=== PATIENT | male | born 1970 | race Caucasian/White ===

== ENCOUNTER 2019-01-12 18:14 | Inpatient (IN) | payer OTHER ==
[~2019-01-12] VITALS: Ht 177.8 cm; Wt 100.9 kg
--- NOTE | ~2019-01-12 | H ---
[facility] [place] [address] HISTORY AND PHYSICAL Name: MAHIKRISHNA Megha Room #: 245-P ADM IN M.R.#: [id number] Admission: 01/12/19 ������������������ Attend Phys: Troy Thurman MD Discharge: ������������������ Date of : 70 Report #: [id number] THIS REPORT FOR: //name// CC: FAM physician/PCP Troy Thurman DATE OF SERVICE: 01/12/2019 ATTENDING PHYSICIAN: Dr. Thurman. PRIMARY CARE PHYSICIAN: [facility]. CHIEF COMPLAINT: Need for emergent dialysis. HISTORY OF PRESENT ILLNESS: The patient is a 48-year-old male who was sent as a direct admission from [facility] due to acute renal failure and hyperkalemia. Apparently, they did not have an ICU bed. He denies any history of kidney problems and has never had to see a multimedia producer in the past. Apparently, he presented to [facility] due to difficulty urinating for a few weeks. He told them he was not feeling like he was able to empty his bladder. Upon further questioning, he states that he was seen at [place] 2 months ago and had a kidney infection and ended up having a catheter placed due to urinary retention. He said he was seen by Nephrology there, and they advised that he keep the Galicia in place at discharge. He was started on Flomax and followed up with Urology 1 month ago and states that catheter was removed at that time, and his Flomax dose was increased. He has had problems urinating since then. He denies seeing any blood in his urine. Overall, he has had some nausea and decreased appetite as well as some bilateral flank pain. He has been having some chills, but has not checked his temperature. At [facility], he was noted to have a potassium of 8.6, with peaked T-waves on his EKG. He was given calcium gluconate, insulin and D50 as well as pain medication, Ativan, Zofran. He was transferred here to have a dialysis catheter placed and emergent dialysis. He is currently receiving hemodialysis. He was in Interventional Radiology [facility] and became belligerent and did have a code green called. He is now more cooperative, although he does state that he will refuse to have a catheter put back in. He is currently asking for pain medication for his back and neck pain, which he says is chronic. PAST MEDICAL HISTORY: Hypertension, BPH, chronic back pain and antisocial personality disorder. PAST SURGICAL HISTORY: Hernia repair and a heart catheterization as a child. ALLERGIES: None. HOME MEDICATIONS: Flomax 0.8 mg daily and atenolol 25 mg p.o. daily. [facility] [address] [place] [address] HISTORY AND PHYSICAL Name: LYDIAJAREDCARLKRISHNA Megha Room #: 245-P [facility] IN M.R.#: [id number] Admission: 01/12/19 ������������������ Attend Phys: Troy Thurman MD Discharge: ������������������ Date of : 70 Report #: [id number] SOCIAL HISTORY: The patient smokes 1 pack of cigarettes per day. He has been smoking for about 32 years. Denies any alcohol use. He does use cocaine infrequently. He is on disability due to his mental health issues. According to his daughter, he has been unable to work because he cannot get along with people. His daughter's name is Quinten and her phone number is [phone]. The patient lives alone. FAMILY HISTORY: Negative for any renal issues. PHYSICAL EXAMINATION: GENERAL: The patient is an alert male in no acute distress. VITAL SIGNS: Temperature is 36.6, heart rate 70, respirations 13, blood pressure 147/61, oxygen 100% on room air. HEENT: PERRLA. Sclerae nonicteric. Oral mucosa is pink and moist. NECK: Supple, no JVD noted. CARDIOVASCULAR: Normal S1, S2. No murmurs, rubs or gallops. RESPIRATORY: Breath sounds are clear bilaterally, is diminished in the bases. Breathing is nonlabored. ABDOMEN: Soft and nondistended with positive bowel sounds. He has some mild suprapubic tenderness. VASCULAR: No peripheral edema noted. Pedal pulses are 2+. NEUROLOGIC: The patient is alert and oriented x 3. Speech is slightly mumbled at times, he may have an underlying speech impediment. No facial asymmetry. He is able to move all extremities equally without any focal deficits. SKIN: Intact. No rashes or lesions. He does have a hemodialysis catheter in the right neck. PSYCHIATRIC: The patient does upset easily and becomes uncooperative at times. LABORATORIES AND DIAGNOSTICS: Blood work from [facility] showed a WBC of 11.2, hemoglobin of 10.0, platelets of 855. Sodium 138, potassium 8.6, BUN 67, creatinine 4.3, glucose 87. Lactate is 0.8. LFTs are within normal limits. INR 1.0. Alcohol level less than 10. Urine drug screen is positive for opiates and cocaine. UA showed 3+ leukocyte esterase, greater than 25 wbc's and many bacteria. EKG showed sinus rhythm with peaked T-waves. CT of the abdomen without contrast shows bilateral moderate hydronephrosis and hydroureter down to the bladder. The bladder wall is diffusely thickened suggesting hypertrophy. The prostate gland is enlarged. These findings suggesting bladder outlet obstruction secondary to prostatic hypertrophy. There is large stool throughout the proximal colon suggesting constipation. There is a 7 cm size hiatal hernia, but no obstruction. ASSESSMENT AND PLAN: 1. Severe hyperkalemia. This was treated with calcium gluconate, insulin and D50. Repeat potassium is improving. We will follow labs and proceed with hemodialysis as ordered per Renal. [facility] [address] [place] [address] HISTORY AND PHYSICAL Name: KRISHNA CHAMPAGNE Room #: 245-P ADM IN M.R.#: [id number] Admission: 01/12/19 ������������������ Attend Phys: Troy Thurman MD Discharge: ������������������ Date of : 70 Report #: [id number] 2. Acute renal failure. The patient has been transferred from [facility] for an emergent hemodialysis due to hyperkalemia. We will consult Renal. This is likely due to bladder outlet obstruction. We will place the Galicia catheter and measure accurate I and O. Start IV fluids. Follow labs. Check renal ultrasound in the morning. Try to get all labs from [facility]. 3. Bilateral hydronephrosis with chronic bladder outlet obstruction due to BPH. The patient was aware of the problem in the past and did have a catheter in place for about a month. The catheter has been out for one month after following up with Urology. We will again replace catheter and continue with Flomax. Unfortunately, we did not have Urology Services available at [facility]. He will need to follow up with his urologist at [facility] to assess if we need to keep PICC catheter in place termite helper versus consider a suprapubic catheter. No stones were noted on CT. Check a PSA level. 4. Urinary tract infection. Urine will be sent for culture. We will continue with Rocephin. 5. Substance abuse. The patient does use cocaine occasionally. Denies regular use. He has been advised to quit. 6. Tobacco abuse. The patient has been advised to quit. Add a nicotine patch. 7. Hypertension. Blood pressure is stable. Continue atenolol. 8. Chronic pain with chronic opiate use. Continue oxycodone at home. The patient also admitted to using opiates from the street when he is out of his own pain meds. 9. Deep venous thrombosis prophylaxis, place sequential compression devices. We will continue to follow the patient closely throughout the hospitalization and make changes based on clinical status. ��������������������������������������������� ���������������������������������������� By: ��������������������������������������������� [id number] BERNABE Magana /eve
--- NOTE | ~2019-01-12 | HC ---
[facility] [place] [place] [address] CONSULTATION Name: KRISHNA CHAMPAGNE Room #: 245-P ADM IN M.R.#: [id number] Admission: 01/12/19 ������������������ Attend Phys: Troy Thurman MD Discharge: ������������������ Date of : 70 Report #: [id number] THIS REPORT FOR: //name// CC: ALAN physician/PCP Troy Thurman DATE OF SERVICE: 01/13/2019 REASON FOR CONSULTATION: Acute kidney injury. REASON FOR PRESENTATION: Transferred from another facility for pain, hyperkalemia and acute kidney injury. HISTORY OF PRESENT ILLNESS: Those were obtained from the chart. The patient is currently being very inappropriate to staff and to myself. He is using very inappropriate words. He is cursing at staff. He is not being compliant with medical care. He is refusing all kind of medical care and advices. A 48-year-old with history of substance abuse. He presented to [facility] reporting to them that he has not been able to urinate. He was found to have an acute kidney injury with hyperkalemia. He was transferred to another facility for further evaluation and management. On presentation yesterday, his creatinine was 4.2 and potassium was 7.6. He required emergent treatment. Apparently, the patient is known to have ongoing bladder issues with recurrent urinary tract infection and obstructive uropathy. He has bilateral hydronephrosis. He has been treated previously at [place], but the details of this hospitalization are not available for me. Other parts of the history are very difficult to obtain given the patient's noncompliance and behavior. PAST MEDICAL HISTORY: 1. Hypertension. 2. Enlarged prostate. 3. Substance abuse. MEDICATIONS: It is reported that he is maintained on: 1. Flomax. 2. Atenolol. ALLERGIES: No reported allergies. SOCIAL HISTORY: Continues to smoke. Admits to cocaine abuse. REVIEW OF SYSTEMS: The patient is noncompliant, very difficult and not answering questions, unable to obtain. FAMILY HISTORY: Unable to obtain given the patient's disruptive behavior. [facility] [address] [place] [address] CONSULTATION Name: MAHIKRISHNA Megha Room #: [facility] IN M.R.#: [id number] Admission: 01/12/19 ������������������ Attend Phys: Troy Thurman MD Discharge: ������������������ Date of : 70 Report #: [id number] PHYSICAL EXAMINATION: GENERAL: He is alert, oriented, being inappropriate to all staff members including myself. Very noncooperative with physical examination. Using inappropriate words when communicating with us. VITAL SIGNS: Pulse rate is 88, respiratory rate is 18, blood pressure is 119/81. HEAD AND NECK: Right IJ temporary catheter. CHEST: No crackles. CARDIOVASCULAR: No rub. ABDOMEN: Soft, nontender. EXTREMITIES: Lower extremities, no edema. LABORATORY DATA: Laboratory values from today reviewed, potassium is down to 5.1, BUN is 38, creatinine is 2.8. ASSESSMENT, IMPRESSION AND PLAN: 1. Polysubstance abuse. 2. Acute kidney injury. 3. Hyperkalemia. 4. Recurrent urinary tract infection. 5. Obstructive uropathy with hyperkalemia. 6. Hemodialysis was done due to emergent hyperkalemia yesterday. I have explained for the patient that his kidney function is expected to fully recover if he complies with medical advices and allow us to insert the Galicia catheter. He expressed for me that he is not interested in having a Galicia catheter, reason for that is pain. I explained for the patient that we could utilize painkillers, local anesthesia to help with the pain control; however, he is very adamant about not having a Galicia catheter. He has obstructive uropathy and his acute kidney injury and hyperkalemia are all related to his obstruction and he will need a chronic Galicia. I talked with the patient's daughter and explained for her, her dad's behavior and the necessity to comply with the medical treatment and advices. 7. No further dialysis today. 8. Unless the patient allows us to medically manage him appropriately, I have no other options to offer. 9. Treatment of his other comorbid conditions by primary team. ��������������������������������������������� ���������������������������������������� By: ��������������������������������������������� [id number] Jasmina Valdivia MD /nt
[~2019-01-12 18:14] MED LIST: ATENOLOL 25 MG25 M1 PO; FLOMAX0.4 MG PO; HYPERTENSION MED
[2019-01-12 21:18] LABS: POC CA IONIZED 5.1 mg/dL (4.5-5.3); POC CREATININE 4.2 mg/dL (0.6-1.3); POC HEMOGLOBIN 12.2 g/dL (14.0-18.0); POC POTASSIUM 7.4 mmol/L (3.5-5.1)
[2019-01-12 21:37] LABS: CREATININE 4.2 mg/dL (0.7-1.3)
[2019-01-12 21:38] LABS: POTASSIUM 7.6 mmol/L (3.5-5.1)
[2019-01-12 22:33] VITALS: BP 120/64
[2019-01-12 22:49] VITALS: BP 112/53
--- NOTE | 2019-01-12 22:50 | NUR ---
PT ARRIVED FROM [facility] AT APPROXIMATELY 1940. PT A&O X3. ABLE TO FOLLOW COMMANDS. PT DOES RESIST TO CARE AT TIMES. PT ABLE TO VOID PER URINAL. HAVING 350 OF CLEAR YELLOW URINE IMMEDIATELY AFTER ADMISSION. PT HAS BEEN C/O LOWER BACK PAIN THAT IS GREATER ON LEFT SIDE. PT HAS BEEN HAVING EPISODES OF HYPOGLYCEMIA IN [place] AND IN [facility]. UNABLE TO OBTAIN LABS INITIALLY. MULTIPLE ATTEMPTS WERE TRIED BY RN AND LAB. ISTAT DONE AT BEDSIDE BY ER NURSE. IV TEAM CONSULTED TO DRAW LABS. DR ORBIEN CALLED AND UPDATED ON PATIENT CARE. ORDERS RECEIVED. PT TAKEN TO IR AND TEMPORARY DIALISYS CATHETER PLACED. PT INITIATED ON DIALYSIS PER RENAL. WILL CONTINUE TO MONITOR PT.
[2019-01-12 23:04] VITALS: BP 121/58
[2019-01-12 23:27] VITALS: BP 119/62
[2019-01-12 23:34] VITALS: BP 127/70
[2019-01-12 23:49] VITALS: BP 117/69
[2019-01-13] VITALS (55 sets, daily range): BP systolic 98–147; BP diastolic 55–96
[2019-01-13 05:05] LABS: HEMATOCRIT 31.6 % (42.0-52.0); HEMOGLOBIN 10.1 gm/dL (14.0-18.0); MCH 23.7 pg (26.0-34.0); MCHC 31.8 g/dL (28.0-37.0); MCV 74.5 fL (80.0-100.0); RBC 4.25 mil/uL (4.50-6.00); RDW 20.3 % (10.5-14.5); WBC 13.9 thou/uL (4.0-11.0)
--- NOTE | 2019-01-13 05:14 | NUR ---
ASSUMED PT CARE AT 0100,PT SLEEPING AT THIS TIME,EASY TO AROUSE,FOLLOWS COMMAND.PT JUST HAD DIALYSIS.IVF INFUSING.BLOOD GLUCOSE STABLE AT THIS TIME.VSS.A/O,SINUS RHTHM ON MONITOR.REFUSED TO HAVE CATHETER INTIATED ORDERED.VOIDING VIA URINAL,GREAT OUTPUT.NO CONCERNS AT THIS TIME.WILL CONT TO MONITOR PER POC.
[2019-01-13 05:16] LABS: ALBUMIN 2.7 g/dL (3.4-5.0); CALCIUM 8.6 mg/dL (8.5-10.1); PHOSPHORUS 3.2 mg/dL (2.5-4.9)
[2019-01-13 05:33] LABS: CREATININE 2.8 mg/dL (0.7-1.3); POTASSIUM 5.1 mmol/L (3.5-5.1)
[2019-01-13 06:03] LABS: MAGNESIUM 1.8 mg/dL (1.8-2.4); PHOSPHORUS 3.3 mg/dL (2.5-4.9)
--- NOTE | 2019-01-13 07:16 | NUR ---
PT IVS INFILTRATED THIS AM,REFUSED FOR THE RN TO DISCONTINUE ONE OF THE INFILTRATED IV STATING, IT HURTS,EDUCATED ON THE RATIONALE OF REMOVING IVS AND STARTING ANOTHER IV,PT BECOMES VERBALLY ABUSIVE AND VERY IMPULSIVE STATING THAT HE WANTS TO GO HOME.DR OBRIEN UPDATED ON PT'S STATUS AND BEHAVIOR.REPORT GIVEN TO DAY RN.
--- NOTE | 2019-01-13 08:34 | NUR ---
PT ALERT AND ORIENTED TIMES FOUR. PT VERY AGITATED THIS MORNING, ARGUING WITH HIS DAUGHTER WHO WAS ASKED TO COME IN TO TALK TO PT ABOUT NOT COMPLYING WITH CARE. PT CONTINUES TO REFUSE TO HAVE SIMMONS AND IV PLACED.. DR. VARGAS. VSS. 97%RA. C/O BACK PAIN PRN PAIN MEDICATIONS GIVEN WITH SOME RELEIF. WILL CONTINUE TO MONITOR.
[2019-01-14] VITALS (33 sets, daily range): BP systolic 101–163; BP diastolic 53–128
[2019-01-14 02:43] LABS: ABSOLUTE NEUTROPHILS 7.8 thou/uL (1.4-8.2); BASOPHILS 0.9 % (0.0-2.0); EOSINOPHILS 2.5 % (0.0-3.0); HEMATOCRIT 33.4 % (42.0-52.0); HEMOGLOBIN 10.4 gm/dL (14.0-18.0); LYMPHOCYTES 16.8 % (24.0-44.0); MCH 23.3 pg (26.0-34.0); MCHC 31.2 g/dL (28.0-37.0); MCV 74.8 fL (80.0-100.0); MONOCYTES 10.5 % (1.0-8.0); PLATELET COUNT 689 thou/uL (150-400); POLYS 69.3 % (36.0-66.0); RBC 4.46 mil/uL (4.50-6.00); RDW 20.1 % (10.5-14.5); WBC 11.3 thou/uL (4.0-11.0)
[2019-01-14 02:56] LABS: ALBUMIN 2.6 g/dL (3.4-5.0); CALCIUM 8.8 mg/dL (8.5-10.1); PHOSPHORUS 5.3 mg/dL (2.5-4.9)
[2019-01-14 03:02] LABS: CREATININE 3.8 mg/dL (0.7-1.3)
[2019-01-14 03:04] LABS: POTASSIUM 6.1 mmol/L (3.5-5.1)
--- NOTE | 2019-01-14 06:29 | NUR ---
ASSUMED CARE @ 1900 01/13/19, PT ASSESSMENTS AND VSS COMPLETE PER ICU PROTOCOL. PT ALERT AND ORIENTED X 4, PT ABLE TO FOLLOW COMMANDS, PT GIVEN MORPHINE AND OXY FOR PAIN DURING THE SHIFT. PT IN SR-SB ON THE MONITOR, NO EDEMA PRESENT. PT ON 2L OF 02 SATS IN THE HIGH 90'S, NO SIGNS OF SOA. PT URINATES VIA URINAL, PT STILL REFUSING TO GET A CATHETER PLACED, RN HAS EDUCATED AND WILL CONTINUE TO EDUCATE ABOUT THE IMPORTANCE OF THIS. PT ON A RENAL DIET. CRITICAL K CALLED TO DR SARAH, NO NEW ORDERS RECIEVED. PLAN OF CARE -CONT TO MONITOR.
--- NOTE | 2019-01-14 18:24 | NUR ---
PT ALERT AND ORIENTED TIMES FOUR. VSS, 96%2L, SR ON TELE, IVF INFUSING PER ORDER. PT AGREED TO HAVE SIMMONS CATHERTER PLACED THIS MORNING. PT C/O BACK PAIN PRN MEDICATIONS GIVEN WITH GOOD RELEIF. PT TOLERATES MEDS AND MEALS. PT UP TO RESTROOM WITH STANDBY ASSIST THIS SHIFT. PT'S DAUGHTER AT BEDSIDE THIS AFTERNOON. PT SLOWLY PROGRESSING TOWRADS POC GOALS.
[2019-01-15] VITALS (19 sets, daily range): BP systolic 106–136; BP diastolic 51–85
--- NOTE | 2019-01-15 06:24 | NUR ---
ASSUMED CARE @ 1900 01/14/19, PT ASSESSMENTS AND VS COMPLETE PER ICU PROTOCOL. PT ALERT AND ORIENTED, PT ABLE TO FOLLOW SIMPLE COMMANDS, PT GIVEN MORPHINE AND OXY DURING THIS SHIFT FOR PAIN. PT IN SR- SB DURING THE SHIFT, NS @ 125ML/HR, NO EDEMA APPARENT. PT ON RA, SATS IN THE HIGH 90'S, NO SIGNS OF SOA, PT TACHYPENIC WHEN IN PAIN. SIMMONS IN PLACE, GOP NOTED. PT ON A RENAL DIET. PT REFUSED TO LET HIS BLOOD BE DRAWN FOR LABS, RN EXPLAINS THE IMPORTANCE OF THIS, HE CONSTANTLY REFUSES, PT HAS NO LAB THIS AM AT THIS TIME. FALL PRECAUTIONS IN PLACE, PLAN OF CARE- CONT TO MONITOR.
[2019-01-15 12:09] LABS: HEP B SURFACE Ab(ANTI-HBS Non Reactive (()); HEPATITIS B SURFACE AG Negative (Negative)
[2019-01-15 13:30] LABS: CALCIUM 9.1 mg/dL (8.5-10.1); CREATININE 3.6 mg/dL (0.7-1.3)
--- NOTE | 2019-01-15 14:17 | NUR ---
Per phys patient with need for urology consult. Patient transferred to [facility] from [facility] for Renal failure which determined bladder obstruction and need fur urology. [place]. He is agreeable to tranfer to hospital. Recent stay at [place]. Called and sp with [facility] transfer center at who reports they want to determine patient will be compliant with care at [place] and agreeable to transfer. Reported patient already signed EMTALLA form and agreeable to transfer to [place], [place] or accepting hospital. [facility] transfer center then requested SW write out a letter to determine patient agreeable and have patient sign letter. SW did so and placed in patients chart. [facility] transfer center during time of signing letter returned call and reports [facility]. Called [place] 3x with no return call. SP with [facility] transfer center Sandra. they are accepting with Dr Parks accepting of patient. Updated patient, he prefers [facility]. Sp with transfer center [facility] who reports first avail bed at [facility] and patient agreeable. Requested to call family he requests to call dtr Quinten [phone]. SP with Quinten who was agreeable. Gave ph# and address to [facility]. Updated phys. [facility] transfer center reports acceptance pending bed anticipating later today. Updated RN.
[2019-01-15] MEDS ORDERED: OXYCODONE HCL 55 MG PO (14:35)
[2019-01-15] MEDS ORDERED: COLACE 100 MG100 MG PO (14:35)
[2019-01-15] MEDS ORDERED: ROCEPHIN 11 GM/1001 IVPB (14:35)
[2019-01-15] MEDS ORDERED: NICOTINE TRANSD21 M1 TRANSDERM (14:35)
[2019-01-15] MEDS ORDERED: MORPHINE SU4 MG/1 M1 IV PUSH (14:35)
--- NOTE | 2019-01-15 16:14 | NUR ---
DCP TRIED CALL [facility] TO ARRANGE TRANSPORT VIA AMBULANCE TO TRANSFER TO [facility] SINCE PT. HAS MEDICAID ONLY THEY COULD NOT ARRANGE TRANSPORT FROM HOSPITAL TO HOSPITAL. NON EMERGENT AMBULANCE FORM PUT ON FRONT OF CHART COPY FOR RN TO CALL TO ARRANGE TRANSPORT VIA AMBULANCE TO [facility].
--- NOTE | 2019-01-15 17:46 | NUR ---
ASSUMED CARE OF PT AT APPROX 0700. PT IS ALERT ANDORIENTED X4, MONITORED ON TELE AND ABLE TO MAINTAIN 02 SAT >90 ON RA. COMPLAINS OF PAIN THAT IS PARTIALLY RELEIVED BY PAIN MEDICATION. REFUSING LABS. FINALLY AGREEABLE IN AFTERNOON. PT WAS EDUCATED ON IMPORTANCE OF TRANSFER TO SEE UROLOGY AT OTHER HOSPITAL, PT AGREEEABLE ON TRANSFER. REPORT GIVEN TO RECIEVING RN AT [facility]. RECIEVING RN DENIES FURTHER QUESTIONS. EMS ARRIVED FOR TRANSPORT OF PT AT APPROX 1740. PT LEFT WITH ALL BELONGINGS VIA EMS WITH CHART COPY FOR RECIEVING FACILITY. MAKING GOOD PROGRESS TOWARDS POC GOALS.
== END 2019-01-15 18:01 | disposition short-term general hospital (02) | DRG 683 ==
LOC: ICU 18:14
PROVIDERS: Hospitalist; Internal Medicine; Nurse Practitioner Acute Care; ADMIT Family Medicine
PROC: B5181ZA Fluoroscopy of Superior Vena Cava using Low Osmolar Contrast, Guidance (ICD-10-PCS; principal; 2019-01-12)
PROC: 02HV33Z Insertion of Infusion Device into Superior Vena Cava, Percutaneous Approach (ICD-10-PCS; principal; 2019-01-12)
PROC: B548ZZA Ultrasonography of Superior Vena Cava, Guidance (ICD-10-PCS; principal; 2019-01-12)
DX: N17.9 Acute kidney failure, unspecified (principal); N13.8 Other obstructive and reflux uropathy; E87.5 Hyperkalemia; N13.6 Pyonephrosis; F14.10 Cocaine abuse, uncomplicated; N40.1 Benign prostatic hyperplasia with lower urinary tract symptoms; G89.29 Other chronic pain; I10 Essential (primary) hypertension; F17.200 Nicotine dependence, unspecified, uncomplicated; Z91.19 Patient's noncompliance with other medical treatment and regimen; Z79.891 Long term (current) use of opiate analgesic
CPT/HCPCS: 10078; 32100